=== PATIENT | male | born 1985 | race Caucasian/White ===

== ENCOUNTER 2018-06-21 23:38 | Emergency (ER) | payer SELFPAY ==
[~2018-06-21] VITALS: Ht 177.8 cm; Wt 82.3 kg
[2018-06-22 00:31] LABS: BASOPHILS # (AUTO) 0.02 x10^3/uL (0-0.1); BASOPHILS % (AUTO) 1 % (0-1); EOSINOPHILS # (AUTO) 0.26 x10^3/uL (0-0.4); EOSINOPHILS % (AUTO) 5 % (1-7); LYMPHOCYTES # (AUTO) 0.88 x10^3/uL (1-3.4); LYMPHOCYTES % (AUTO) 18 % (22-44); MD NO; MEAN CORPUSCULAR HEMOGLOBIN 29.4 pg (27.5-34.5); MEAN CORPUSCULAR HGB CONC 34.6 g/dL (33.2-36.2); MEAN PLATELET VOLUME 8.3 fL (7.4-10.4); MONOCYTES # (AUTO) 0.28 x10^3/uL (0.2-0.8); MONOCYTES % (AUTO) 6 % (2-9); NEUTROPHILS # (AUTO) 3.48 x10^3/uL (1.8-6.8); NEUTROPHILS % (AUTO) 71 % (42-75); PLATELET COUNT 233 x10^3/uL (130-400); RED BLOOD COUNT 5.03 x10^6/uL (4.38-5.82); RED CELL DISTRIBUTION WIDTH 13.5 % (9.4-14.8)
[2018-06-22 00:37] LABS: ANION GAP 11 mmol/L (5-15); CALCIUM 8.4 mg/dL (8.5-10.1); CHLORIDE 109 mmol/L (98-107)
[2018-06-22] MEDS ORDERED: ONDANSETRON 2MG/ML, 2ML ONE (00:38)
[2018-06-22 00:39] LABS: SALICYLATE LEVEL < 1.7 mg/dL (2.8-20.0)
[2018-06-22 00:40] LABS: ACETAMINOPHEN < 2 mcg/mL (10-30); ALANINE AMINOTRANSFERASE 91 U/L (12-78); ALKALINE PHOSPHATASE 90 U/L (45-117); BILIRUBIN,TOTAL 0.3 mg/dL (0.2-1.0); CREATININE 1.03 mg/dL (0.7-1.3); TOTAL PROTEIN 7.4 g/dL (6.4-8.2)
[2018-06-22] MEDS ORDERED: ONDANSETRON 2MG/ML, 2ML IVPush ONE (01:00)
[2018-06-22 01:50] VITALS: BP 117/71
[2018-06-22 02:38] LABS: AMPHETAMINE SCREEN, URINE Negative (Negative); BARBITURATE SCREEN, URINE Negative (Negative); BENZODIAZEPINE SCREEN, URINE Negative (Negative); CANNABINOID SCREEN, URINE Negative (Negative); COCAINE SCREEN, URINE Negative (Negative); METHADONE SCREEN, URINE Negative (Negative); OPIATE SCREEN, URINE Negative (Negative)
== END 2018-06-22 02:59 | disposition home or self-care (01) ==
LOC: ED 06-22 02:53
DX: T40.2X1A Poisoning by other opioids, accidental (unintentional), initial encounter (principal); F11.10 Opioid abuse, uncomplicated; X58.XXXA Exposure to other specified factors, initial encounter; Y93.89 Activity, other specified; Y92.89 Other specified places as the place of occurrence of the external cause; Y99.8 Other external cause status
CPT/HCPCS: 36415; 80053; 80307; 80329; 85025; 96374; 99284; J2405; G0480

== ENCOUNTER 2018-09-15 10:35 | Inpatient (IN) | payer MEDICAID, OTHER, SELFPAY ==
[~2018-09-15] VITALS: Ht 175.3 cm; Wt 79.0 kg
[2018-09-15] MEDS ORDERED: SERT25TA PO (10:58)
[2018-09-15] MEDS ORDERED: SODIUM CHLORIDE 0.9% 1,000 ML IV ONE ×2 (11:04→12:11)
[2018-09-15] MEDS ORDERED: ONDANSETRON ODT 4 MG ONE (11:10)
[2018-09-15] MEDS ORDERED: HYDROmorphone 2 MG/ML, 1ML ONE (11:10)
[2018-09-15] MEDS ORDERED: ONDANSETRON ODT 4 MG PO ONE (11:30)
[2018-09-15] MEDS ORDERED: SODIUM CHLORIDE FLUSH 10ML SYR IVF ONE (11:30)
[2018-09-15] MEDS ORDERED: HYDROmorphone 2 MG/ML, 1ML IVPush PRN (11:30)
[2018-09-15] MEDS ORDERED: SODIUM CHLORIDE 0.9% 1,000ML IVBOLUS ONE (11:30)
[2018-09-15 11:39] LABS: BASOPHILS # (AUTO) 0.02 x10^3/uL (0-0.1); BASOPHILS % (AUTO) 0 % (0-1); EOSINOPHILS # (AUTO) 0.15 x10^3/uL (0-0.4); EOSINOPHILS % (AUTO) 1 % (1-7); LYMPHOCYTES # (AUTO) 1.12 x10^3/uL (1-3.4); LYMPHOCYTES % (AUTO) 10 % (22-44); MD NO; MEAN CORPUSCULAR HEMOGLOBIN 28.9 pg (27.5-34.5); MEAN CORPUSCULAR HGB CONC 33.6 g/dL (33.2-36.2); MEAN PLATELET VOLUME 8.7 fL (7.4-10.4); MONOCYTES # (AUTO) 0.33 x10^3/uL (0.2-0.8); MONOCYTES % (AUTO) 3 % (2-9); NEUTROPHILS # (AUTO) 9.09 x10^3/uL (1.8-6.8); NEUTROPHILS % (AUTO) 85 % (42-75); PLATELET COUNT 239 x10^3/uL (130-400); RED BLOOD COUNT 5.45 x10^6/uL (4.38-5.82); RED CELL DISTRIBUTION WIDTH 13.8 % (9.4-14.8)
[2018-09-15 11:51] LABS: ALANINE AMINOTRANSFERASE 120 U/L (12-78); ALBUMIN 4.4 g/dL (3.4-5.0); ANION GAP 7 mmol/L (5-15); CALCIUM 9.2 mg/dL (8.5-10.1); CHLORIDE 106 mmol/L (98-107); CREATININE 0.92 mg/dL (0.7-1.3)
[2018-09-15 11:53] LABS: ALKALINE PHOSPHATASE 97 U/L (45-117); BILIRUBIN,TOTAL 0.8 mg/dL (0.2-1.0)
[2018-09-15] MEDS ORDERED: MORPHINE SULFATE 4 MG/ML, 1ML IVPush ONE (12:00)
[2018-09-15] MEDS ORDERED: MORPHINE SULFATE 4 MG/ML, 1ML ONE ×2 (12:02→13:55)
[2018-09-15] MEDS ORDERED: SODIUM CHLORIDE FLUSH 10ML SYR IVF PRN (12:30)
[2018-09-15 12:49] LABS: MICROSCOPIC INDICATED
[2018-09-15] MEDS ORDERED: BACLOFEN 10 MG TABLET PO PRN (13:00)
[2018-09-15] MEDS ORDERED: ONDANSETRON 2MG/ML, 2ML IVPush PRN (13:00)
[2018-09-15] MEDS ORDERED: hydrALAzine 20 MG/ML, 1ML IVPush PRN (13:00)
[2018-09-15 13:05] LABS: CULTURE INDICATED? NO
[2018-09-15] MEDS: MORPHINE SULFATE 4 MG/ML, 1ML IVPush PRN ×2 (13:59→17:54)
[2018-09-15 14:29] VITALS: BP 144/92
[2018-09-15] MEDS: KETOROLAC 30 MG/1 ML IV PRN ×2 (14:55→20:33)
[2018-09-15] MEDS ORDERED: ATOR10TA9 PO (15:25)
[2018-09-15] MEDS ORDERED: NALT50TA PO (15:28)
[2018-09-15] MEDS: POTASSIUM CHLORIDE 20 MEQ, MAGNESIUM SULFATE 1 GM, FOLIC ACID 1 MG, THIAMINE 200 MG, MV... IV SCH (15:51)
[2018-09-15] MEDS: SODIUM CHLORIDE 0.9% 1,000 ML IV SCH ×2 (15:51→23:59)
[2018-09-15] MEDS: HYDROmorphone 2 MG/ML, 1ML IVPush PRN ×3 (17:02→22:39)
[2018-09-15 19:25] VITALS: BP 142/94
[2018-09-15] MEDS: PANTOPRAZOLE 40 MG IV IVPush SCH (20:34)
[2018-09-15] MEDS: NICOTINE 14MG/24 HR PATCH.TD24 TD SCH (20:36)
[2018-09-16 01:27] VITALS: BP 132/90
[2018-09-16] MEDS: KETOROLAC 30 MG/1 ML IV PRN ×4 (02:06→21:38)
[2018-09-16] MEDS: HYDROmorphone 2 MG/ML, 1ML IVPush PRN ×6 (03:27→19:48)
[2018-09-16 04:54] LABS: BASOPHILS # (AUTO) 0.01 x10^3/uL (0-0.1); BASOPHILS % (AUTO) 0 % (0-1); EOSINOPHILS # (AUTO) 0.27 x10^3/uL (0-0.4); EOSINOPHILS % (AUTO) 3 % (1-7); LYMPHOCYTES # (AUTO) 1.22 x10^3/uL (1-3.4); LYMPHOCYTES % (AUTO) 11 % (22-44); MD NO; MEAN CORPUSCULAR HEMOGLOBIN 29.1 pg (27.5-34.5); MEAN CORPUSCULAR HGB CONC 34.1 g/dL (33.2-36.2); MEAN CORPUSCULAR VOLUME 85.5 fL (81-97); MEAN PLATELET VOLUME 8.9 fL (7.4-10.4); MONOCYTES # (AUTO) 0.44 x10^3/uL (0.2-0.8); MONOCYTES % (AUTO) 4 % (2-9); NEUTROPHILS # (AUTO) 9.16 x10^3/uL (1.8-6.8); NEUTROPHILS % (AUTO) 83 % (42-75); PLATELET COUNT 187 x10^3/uL (130-400); RED BLOOD COUNT 5.09 x10^6/uL (4.38-5.82); RED CELL DISTRIBUTION WIDTH 13.6 % (9.4-14.8)
[2018-09-16 05:07] LABS: ALBUMIN 3.5 g/dL (3.4-5.0); ANION GAP 6 mmol/L (5-15); CALCIUM 8.5 mg/dL (8.5-10.1); CHLORIDE 107 mmol/L (98-107)
[2018-09-16 05:14] LABS: ALANINE AMINOTRANSFERASE 76 U/L (12-78); ALKALINE PHOSPHATASE 81 U/L (45-117); BILIRUBIN,TOTAL 1.7 mg/dL (0.2-1.0); CHOL/HDL RATIO 1.9; CHOLESTEROL, TOTAL 136 mg/dL (140-239); CREATININE 0.72 mg/dL (0.7-1.3); HDL CHOL % 52 % (26-37); HDL CHOLESTEROL (DIRECT) 71 mg/dL (40-60); LDL CHOLESTEROL,CALCULATED 45 mg/dL (54-169); LDL/HDL RATIO 0.6 (0.5-3.0); TOTAL PROTEIN 6.6 g/dL (6.4-8.2); TRIGLYCERIDES 99 mg/dL (50-200); VLDL CHOLESTEROL 20 mg/dL (0-25)
[2018-09-16] MEDS: SODIUM CHLORIDE 0.9% 1,000 ML IV SCH ×2 (06:22→14:32)
[2018-09-16 07:10] VITALS: BP 136/92
[2018-09-16] MEDS: PANTOPRAZOLE 40 MG IV IVPush SCH ×2 (08:05→20:49)
[2018-09-16 13:03] VITALS: BP 152/109
[2018-09-16] MEDS: POTASSIUM CHLORIDE 20 MEQ, MAGNESIUM SULFATE 1 GM, FOLIC ACID 1 MG, THIAMINE 200 MG, MV... IV SCH (14:32)
[2018-09-16 19:25] VITALS: BP 134/78
[2018-09-16] MEDS: NICOTINE 14MG/24 HR PATCH.TD24 TD SCH (20:49)
[2018-09-17 01:53] VITALS: BP 127/90
[2018-09-17] MEDS: KETOROLAC 30 MG/1 ML IV PRN ×3 (03:23→15:55)
[2018-09-17] MEDS: SODIUM CHLORIDE 0.9% 1,000 ML IV SCH ×2 (03:24→10:18)
[2018-09-17 05:17] LABS: ALANINE AMINOTRANSFERASE 55 U/L (12-78); ALBUMIN 3.3 g/dL (3.4-5.0); ANION GAP 8 mmol/L (5-15); CALCIUM 8.4 mg/dL (8.5-10.1); CHLORIDE 107 mmol/L (98-107); CREATININE 0.72 mg/dL (0.7-1.3)
[2018-09-17 05:22] LABS: ALKALINE PHOSPHATASE 79 U/L (45-117); BILIRUBIN,TOTAL 1.4 mg/dL (0.2-1.0); TOTAL PROTEIN 6.9 g/dL (6.4-8.2)
[2018-09-17 06:41] VITALS: BP 127/90
[2018-09-17] MEDS: HYDROmorphone 2 MG/ML, 1ML IVPush PRN ×2 (07:28→13:14)
[2018-09-17] MEDS: PANTOPRAZOLE 40 MG IV IVPush SCH (07:28)
[2018-09-17] MEDS ORDERED: THIAMINE 100MG TABLET PO ONE (09:00)
[2018-09-17] MEDS ORDERED: FOLIC ACID 1 MG TABLET PO SCH (09:00)
[2018-09-17] MEDS ORDERED: PANTOPROZOLE 40MG TABLET PO SCH (09:00)
[2018-09-17] MEDS ORDERED: MAGNESIUM OXIDE 400 MG TABLET PO SCH (09:00)
[2018-09-17 12:26] VITALS: BP 126/83
[2018-09-17] MEDS ORDERED: MAGN400T50 PO (12:40)
[2018-09-17] MEDS ORDERED: NICO-486 TD (12:40)
[2018-09-17] MEDS ORDERED: FOLI-17 PO (12:40)
[2018-09-17] MEDS ORDERED: PANT40TA5 PO (12:40)
== END 2018-09-17 16:09 | disposition home or self-care (01) | DRG 432 ==
LOC: ED 12:10 → EDIP 12:11 → MERGE 12:11 → ED 12:16 → SUATTDRO 12:26 → 3NW 14:11
PROVIDERS: ADMIT Hospitalist; ATTEND Hospitalist
DX: K70.10 Alcoholic hepatitis without ascites (principal); K85.20 Alcohol induced acute pancreatitis without necrosis or infection; F11.20 Opioid dependence, uncomplicated; K76.0 Fatty (change of) liver, not elsewhere classified; F10.20 Alcohol dependence, uncomplicated; F41.1 Generalized anxiety disorder; F32.9 Major depressive disorder, single episode, unspecified; Y90.1 Blood alcohol level of 20-39 mg/100 ml; Z87.891 Personal history of nicotine dependence; Z23 Encounter for immunization
CPT/HCPCS: 36415; 99285; J7042; 76700; 80053; 80061; 80307; 81001; 82140; 83690; 83735; 84100; 85025; 86704; 86706; 86708; 86803; 87340; 90656; 96361; 96374; 96375; G0378; J1170; J1885; J3411; J3475; J3480; Q0162; C9113; J7030

== ENCOUNTER 2019-02-23 10:47 | Emergency (ER) | payer OTHER ==
[~2019-02-23] VITALS: Ht 177.8 cm; Wt 83.9 kg
[~2019-02-23 10:47] MED LIST: ATOR10TA9 PO; FOLI-17 PO; MAGN400T50 PO; NALT50TA PO; NICO-486 TD; PANT40TA5 PO; SERT25TA PO
[2019-02-23] MEDS ORDERED: DIAZEPAM 5 MG TABLET PO ONE (11:30)
[2019-02-23] MEDS ORDERED: KETOROLAC 30 MG/1 ML IM ONE (11:30)
[2019-02-23] MEDS ORDERED: DIAZEPAM 5 MG TABLET ONE (11:31)
[2019-02-23] MEDS ORDERED: KETOROLAC 30 MG/1 ML ONE (11:31)
[2019-02-23] MEDS ORDERED: HYDROcodone/APAP 5/325 TABLET ONE (12:26)
[2019-02-23] MEDS ORDERED: HYDROcodone/APAP 5/325 TABLET PO ONE (12:30)
[2019-02-23 12:34] VITALS: BP 124/80
== END 2019-02-23 12:44 | disposition home or self-care (01) ==
LOC: ED 12:22
DX: S39.012A Strain of muscle, fascia and tendon of lower back, initial encounter (principal); S29.012A Strain of muscle and tendon of back wall of thorax, initial encounter; X58.XXXA Exposure to other specified factors, initial encounter; Y93.89 Activity, other specified; Y92.89 Other specified places as the place of occurrence of the external cause; Y99.8 Other external cause status
CPT/HCPCS: 72072; 72110; 96372; 99283; J1885

== ENCOUNTER → 2019-03-25 | Outpatient (CLI) | payer OTHER | END | disposition home or self-care (01) | LOC: RAD 08:34 → EDSTATUS 09:00 | PROVIDERS: ATTEND Neurological Surgery | DX: M48.02 Spinal stenosis, cervical region (principal); M47.812 Spondylosis without myelopathy or radiculopathy, cervical region | CPT/HCPCS: 72050; 72114; 72141 ==

== ENCOUNTER → 2019-04-18 | Outpatient (CLI) | payer OTHER ==
[2019-04-18 07:52] LABS: BASOPHILS # (AUTO) 0.04 x10^3/uL (0-0.1); BASOPHILS % (AUTO) 1 % (0-1); EOSINOPHILS # (AUTO) 0.44 x10^3/uL (0-0.4); EOSINOPHILS % (AUTO) 7 % (1-7); LYMPHOCYTES # (AUTO) 1.82 x10^3/uL (1-3.4); LYMPHOCYTES % (AUTO) 27 % (22-44); MD NO; MEAN CORPUSCULAR HEMOGLOBIN 28.4 pg (27.5-34.5); MEAN CORPUSCULAR HGB CONC 32.4 g/dL (33.2-36.2); MEAN CORPUSCULAR VOLUME 87.5 fL (81-97); MEAN PLATELET VOLUME 7.8 fL (7.4-10.4); MONOCYTES # (AUTO) 0.48 x10^3/uL (0.2-0.8); MONOCYTES % (AUTO) 7 % (2-9); NEUTROPHILS # (AUTO) 3.92 x10^3/uL (1.8-6.8); NEUTROPHILS % (AUTO) 59 % (42-75); PLATELET COUNT 226 x10^3/uL (130-400); RED BLOOD COUNT 5.47 x10^6/uL (4.38-5.82); RED CELL DISTRIBUTION WIDTH 13.4 % (9.4-14.8)
[2019-04-18 08:10] LABS: ALANINE AMINOTRANSFERASE 185 U/L (12-78); ALBUMIN 4.2 g/dL (3.4-5.0); ANION GAP 6 mmol/L (5-15); CHLORIDE 104 mmol/L (98-107); CREATININE 1.03 mg/dL (0.7-1.3); GAMMA GLUTAMYL TRANSPEPTIDASE 449 U/L (15-85)
[2019-04-18 08:14] LABS: ALKALINE PHOSPHATASE 94 U/L (45-117); BILIRUBIN,TOTAL 0.7 mg/dL (0.2-1.0); CHOL/HDL RATIO 4.2; CHOLESTEROL, TOTAL 297 mg/dL (140-239); HDL CHOL % 24 % (26-37); HDL CHOLESTEROL (DIRECT) 71 mg/dL (40-60); LDL CHOLESTEROL,CALCULATED 187 mg/dL (54-169); LDL/HDL RATIO 2.6 (0.5-3.0); TOTAL PROTEIN 7.8 g/dL (6.4-8.2); TRIGLYCERIDES 196 mg/dL (50-200); VLDL CHOLESTEROL 39 mg/dL (0-25)
== END | disposition home or self-care (01) ==
LOC: LAB 07:41
PROVIDERS: ATTEND Family Medicine
DX: E78.5 Hyperlipidemia, unspecified (principal); R73.9 Hyperglycemia, unspecified; R94.5 Abnormal results of liver function studies
CPT/HCPCS: 36415; 80053; 80061; 82977; 83036; 85025

== ENCOUNTER 2019-04-26 04:27 | Inpatient (IN) | payer OTHER ==
[~2019-04-26] VITALS: Ht 177.8 cm; Wt 86.4 kg
[2019-04-26] MEDS ORDERED: MAALOX/HYOSCYAMINE/LIDOCAINE 45 ML BTL ONE (05:08)
--- NOTE | 2019-04-26 05:11 | NUR ---
PT HERE FOR CHEST/EPIGASTRIC PAIN THAT STARTED BACK PAIN YESTERDAY. VSS. PT MEDICATED WITH GI COCKTAIL. WILL REASSESS PT PAIN IN 20 MIN. PT RESTING WITH NO NEEDS AT THIS TIME. CALL LIGHT IN REACH
[2019-04-26] MEDS ORDERED: MAALOX/HYOSCYAMINE/LIDOCAINE 45 ML BTL PO ONE (05:30)
[2019-04-26] MEDS ORDERED: SODIUM CHLORIDE FLUSH 10ML SYR IVF ONE (05:30)
[2019-04-26 05:50] LABS: BASOPHILS # (AUTO) 0.02 x10^3/uL (0-0.1); BASOPHILS % (AUTO) 0 % (0-1); EOSINOPHILS # (AUTO) 0.27 x10^3/uL (0-0.4); EOSINOPHILS % (AUTO) 3 % (1-7); LYMPHOCYTES # (AUTO) 1.56 x10^3/uL (1-3.4); LYMPHOCYTES % (AUTO) 17 % (22-44); MD NO; MEAN CORPUSCULAR HEMOGLOBIN 29.5 pg (27.5-34.5); MEAN CORPUSCULAR HGB CONC 33.6 g/dL (33.2-36.2); MEAN CORPUSCULAR VOLUME 87.7 fL (81-97); MEAN PLATELET VOLUME 8.3 fL (7.4-10.4); MONOCYTES % (AUTO) 4 % (2-9); NEUTROPHILS # (AUTO) 7.09 x10^3/uL (1.8-6.8); NEUTROPHILS % (AUTO) 76 % (42-75); PLATELET COUNT 241 x10^3/uL (130-400); RED BLOOD COUNT 5.32 x10^6/uL (4.38-5.82); RED CELL DISTRIBUTION WIDTH 13.5 % (9.4-14.8)
[2019-04-26 05:53] LABS: CHLORIDE 107 mmol/L (98-107)
[2019-04-26 06:02] LABS: ALANINE AMINOTRANSFERASE 122 U/L (12-78); ALBUMIN 4.2 g/dL (3.4-5.0); ALKALINE PHOSPHATASE 81 U/L (45-117); ANION GAP 9 mmol/L (5-15); BILIRUBIN,TOTAL 1.5 mg/dL (0.2-1.0); CALCIUM 9.3 mg/dL (8.5-10.1); CREATININE 1.03 mg/dL (0.7-1.3); TOTAL PROTEIN 7.8 g/dL (6.4-8.2); TROPONIN I < 0.015 ng/mL (0.000-0.045)
--- NOTE | 2019-04-26 06:05 | NUR ---
PT RESTING. VSS. MEDICATION HELPED SLIGHTLY. MD TO RE EVALUATE.
[2019-04-26] MEDS ORDERED: HYDR-3240 PO (06:19)
[2019-04-26] MEDS ORDERED: ONDANSETRON 2MG/ML, 2ML ONE (06:24)
[2019-04-26] MEDS ORDERED: HYDROmorphone 2 MG/ML, 1ML ONE ×2 (06:25→10:22)
[2019-04-26] MEDS ORDERED: ONDANSETRON 2MG/ML, 2ML IVPush ONE (06:30)
[2019-04-26] MEDS: HYDROmorphone 2 MG/ML, 1ML IVPush PRN ×6 (06:36→21:36)
--- NOTE | 2019-04-26 06:42 | NUR ---
PT BACK FROM CT. PT MEDICATED FOR PAIN. PT HAS NO OTHER NEEDS AT THIS TIME. CALL LIGHT IN REACH
[2019-04-26] MEDS ORDERED: OMNIPAQUE 350 MG/ML, 100ML BOTTLE ONE (06:54)
--- NOTE | 2019-04-26 06:57 | NUR ---
REPORT TO CALVIN LEWIS.
--- NOTE | 2019-04-26 07:26 | NUR ---
PT REPORTS THAT HIS PAIN HAS DECREASED AND HE IS COMFORTABLE NOW. PT STATES, "I DON'T REALLY DRINK THAT MUCH ANYMORE, JUST A FEW DRINKS AFTER WORK". PT REPORTS THAT HE HAS CHRONIC PAIN IN HIS LOWER BACK, BUT "NO OTHER MEDICAL PROBLEMS". VSS. NO ACUTE DISTRESS NOTED.
[2019-04-26] MEDS ORDERED: ONDANSETRON ODT 4 MG PO PRN (07:30)
[2019-04-26] MEDS: LACTATED RINGERS 1,000 ML IV SCH ×2 (07:30→18:12)
[2019-04-26] MEDS ORDERED: KETOROLAC 30 MG/1 ML IVPush ONE (07:30)
[2019-04-26] MEDS ORDERED: PROMETHAZINE 25 MG/ML, 1ML IM PRN (07:30)
[2019-04-26] MEDS ORDERED: ONDANSETRON 2MG/ML, 2ML IVPush PRN (07:30)
[2019-04-26] MEDS ORDERED: MORPHINE SULFATE 4 MG/ML, 1ML IVPush PRN (07:30)
[2019-04-26 07:47] LABS: CHOL/HDL RATIO 3.6; LDL/HDL RATIO 2.1 (0.5-3.0)
[2019-04-26] MEDS ORDERED: KETOROLAC 30 MG/1 ML ONE (08:00)
--- NOTE | 2019-04-26 08:06 | NUR ---
PT DENIES ANY NEEDS AT THIS TIME. PT IS AWARE THAT HE IS TO NOT HAVE ORAL INTAKE. VSS.
--- NOTE | 2019-04-26 09:05 | NUR ---
PT DENIES ANY NEEDS AT THIS TIME. VSS. NO ACUTE SIGNS OF DISTRESS.
--- NOTE | 2019-04-26 09:37 | NUR ---
REPORT GIVEN TO FAINA ON ONC.
--- NOTE | 2019-04-26 09:41 | NUR ---
PT READY TO BE TRANSFERRED TO FLOOR. ALL BELONGINGS WITH PT. FAMILY AT BEDSIDE. VSS.
--- NOTE | 2019-04-26 10:29 | NUR ---
PT MEDICATED FOR PAIN. DENIES ADDITIONAL NEEDS AT THIS TIME. VSS.
[2019-04-26 10:49] VITALS: BP 143/85
[2019-04-26] MEDS: POTASSIUM CHLORIDE 20 MEQ, MAGNESIUM SULFATE 1 GM, FOLIC ACID 1 MG, THIAMINE 200 MG, MV... IV SCH (11:05)
[2019-04-26] MEDS: NICOTINE 14MG/24 HR PATCH.TD24 TD SCH (11:05)
[2019-04-26] MEDS: PANTOPRAZOLE 40 MG IV IVPush SCH (11:05)
[2019-04-26 12:13] VITALS: BP 143/92
[2019-04-26 19:21] VITALS: BP 145/97
[2019-04-26] MEDS: LORazepam 2 MG/ML, 1ML IVPush PRN (21:00)
[2019-04-27] MEDS: LACTATED RINGERS 1,000 ML IV SCH ×3 (00:04→17:24)
[2019-04-27] MEDS: HYDROmorphone 2 MG/ML, 1ML IVPush PRN ×10 (00:06→23:43)
[2019-04-27 00:56] VITALS: BP 150/90
[2019-04-27 04:53] LABS: MEAN CORPUSCULAR HEMOGLOBIN 29.4 pg (27.5-34.5); MEAN CORPUSCULAR HGB CONC 33.1 g/dL (33.2-36.2); MEAN CORPUSCULAR VOLUME 88.9 fL (81-97); MEAN PLATELET VOLUME 8.3 fL (7.4-10.4); PLATELET COUNT 228 x10^3/uL (130-400); RED CELL DISTRIBUTION WIDTH 13.8 % (9.4-14.8)
[2019-04-27 04:59] LABS: ALBUMIN 3.7 g/dL (3.4-5.0); ANION GAP 11 mmol/L (5-15); CALCIUM 8.8 mg/dL (8.5-10.1); CHLORIDE 106 mmol/L (98-107)
[2019-04-27 05:10] LABS: ALANINE AMINOTRANSFERASE 85 U/L (12-78); ALKALINE PHOSPHATASE 81 U/L (45-117); BILIRUBIN,TOTAL 1.7 mg/dL (0.2-1.0); CREATININE 0.98 mg/dL (0.7-1.3); TOTAL PROTEIN 7.1 g/dL (6.4-8.2)
[2019-04-27 05:33] LABS: MD YES
[2019-04-27 05:35] LABS: <PLATELET ESTIMATE> ADEQUATE; <PLT MORPHOLOGY> NORMAL PLT MORPH; <RBC MORPHOLOGY> NORMAL; BAND#(MANUAL) 1.28 x10^3/uL; BANDS%(MANUAL) 7 % (0-7); LYMPH#(MANUAL) 0.55 x10^3/uL (1-3.4); LYMPHS% (MANUAL) 3 % (22-44); MONOS#(MANUAL) 0.55 x10^3/uL (0.3-2.7); MONOS% (MANUAL) 3 % (2-9); SEG#(MANUAL) 15.92 x10^3/uL (1.8-6.8); SEGS% (MANUAL) 87 % (42-75)
[2019-04-27] MEDS: PANTOPRAZOLE 40 MG IV IVPush SCH (07:29)
[2019-04-27] MEDS: NICOTINE 14MG/24 HR PATCH.TD24 TD SCH (07:29)
[2019-04-27 07:32] VITALS: BP 144/89
[2019-04-27] MEDS: POTASSIUM CHLORIDE 20 MEQ, MAGNESIUM SULFATE 1 GM, FOLIC ACID 1 MG, THIAMINE 200 MG, MV... IV SCH (08:47)
[2019-04-27] MEDS ORDERED: MAALOX/HYOSCYAMINE/LIDOCAINE 45 ML BTL PO ONE (10:30)
[2019-04-27 12:22] LABS: MICROSCOPIC AUTO
[2019-04-27 12:25] LABS: CULTURE INDICATED? NO
[2019-04-27 13:19] VITALS: BP 145/94
[2019-04-27] MEDS ORDERED: cloniDINE 0.1MG PATCH TD SCH (19:00)
[2019-04-27] MEDS: GABAPENTIN 100 MG CAPSULE PO SCH ×2 (19:00→20:24)
[2019-04-27 19:43] VITALS: BP 133/80
[2019-04-27] MEDS: D5%-LACTATED RINGERS 1,000 ML IV SCH (20:15)
[2019-04-27] MEDS: LORazepam 2 MG/ML, 1ML IVPush PRN (22:25)
[2019-04-28] MEDS: D5%-LACTATED RINGERS 1,000 ML IV SCH ×4 (01:12→20:32)
[2019-04-28 01:55] VITALS: BP 144/82
[2019-04-28] MEDS: HYDROmorphone 2 MG/ML, 1ML IVPush PRN ×8 (02:33→23:03)
[2019-04-28 06:23] LABS: MEAN CORPUSCULAR HEMOGLOBIN 29.3 pg (27.5-34.5); MEAN CORPUSCULAR HGB CONC 33.2 g/dL (33.2-36.2); MEAN CORPUSCULAR VOLUME 88.5 fL (81-97); MEAN PLATELET VOLUME 8.6 fL (7.4-10.4); PLATELET COUNT 167 x10^3/uL (130-400); RED BLOOD COUNT 4.55 x10^6/uL (4.38-5.82); RED CELL DISTRIBUTION WIDTH 13.8 % (9.4-14.8)
[2019-04-28 06:37] LABS: CHLORIDE 108 mmol/L (98-107)
[2019-04-28 06:43] LABS: BASOPHILS # (AUTO) 0.02 x10^3/uL (0-0.1); BASOPHILS % (AUTO) 0 % (0-1); EOSINOPHILS # (AUTO) 0.42 x10^3/uL (0-0.4); EOSINOPHILS % (AUTO) 4 % (1-7); LYMPHOCYTES # (AUTO) 0.92 x10^3/uL (1-3.4); LYMPHOCYTES % (AUTO) 10 % (22-44); MD SCAN; MONOCYTES # (AUTO) 0.38 x10^3/uL (0.2-0.8); MONOCYTES % (AUTO) 4 % (2-9); NEUTROPHILS # (AUTO) 7.74 x10^3/uL (1.8-6.8); NEUTROPHILS % (AUTO) 82 % (42-75)
[2019-04-28 06:49] LABS: ALANINE AMINOTRANSFERASE 49 U/L (12-78); ALBUMIN 2.8 g/dL (3.4-5.0); ALKALINE PHOSPHATASE 73 U/L (45-117); ANION GAP 7 mmol/L (5-15); BILIRUBIN,TOTAL 1.5 mg/dL (0.2-1.0); CALCIUM 8.2 mg/dL (8.5-10.1); CREATININE 0.91 mg/dL (0.7-1.3); TOTAL PROTEIN 6.5 g/dL (6.4-8.2)
[2019-04-28 07:20] VITALS: BP 136/79
[2019-04-28] MEDS: PANTOPRAZOLE 40 MG IV IVPush SCH (08:33)
[2019-04-28] MEDS: NICOTINE 14MG/24 HR PATCH.TD24 TD SCH (08:33)
[2019-04-28] MEDS: GABAPENTIN 100 MG CAPSULE PO SCH ×3 (10:16→20:12)
[2019-04-28] MEDS: POTASSIUM CHLORIDE 20 MEQ, MAGNESIUM SULFATE 1 GM, FOLIC ACID 1 MG, THIAMINE 200 MG, MV... IV SCH (11:24)
[2019-04-28 14:33] VITALS: BP 136/81
[2019-04-28 18:34] VITALS: BP 129/81
[2019-04-29] MEDS: D5%-LACTATED RINGERS 1,000 ML IV SCH ×5 (00:59→21:56)
[2019-04-29] MEDS: HYDROmorphone 2 MG/ML, 1ML IVPush PRN ×7 (02:09→19:55)
[2019-04-29 04:00] VITALS: BP 121/75
[2019-04-29 05:01] LABS: BASOPHILS # (AUTO) 0.01 x10^3/uL (0-0.1); BASOPHILS % (AUTO) 0 % (0-1); EOSINOPHILS # (AUTO) 0.55 x10^3/uL (0-0.4); EOSINOPHILS % (AUTO) 6 % (1-7); LYMPHOCYTES % (AUTO) 12 % (22-44); MD NO; MEAN CORPUSCULAR HEMOGLOBIN 29.3 pg (27.5-34.5); MEAN CORPUSCULAR HGB CONC 33.2 g/dL (33.2-36.2); MEAN CORPUSCULAR VOLUME 88.3 fL (81-97); MEAN PLATELET VOLUME 8.8 fL (7.4-10.4); MONOCYTES # (AUTO) 0.46 x10^3/uL (0.2-0.8); MONOCYTES % (AUTO) 5 % (2-9); NEUTROPHILS # (AUTO) 6.91 x10^3/uL (1.8-6.8); NEUTROPHILS % (AUTO) 77 % (42-75); PLATELET COUNT 157 x10^3/uL (130-400); RED BLOOD COUNT 4.31 x10^6/uL (4.38-5.82); RED CELL DISTRIBUTION WIDTH 13.8 % (9.4-14.8)
[2019-04-29 05:07] LABS: ALANINE AMINOTRANSFERASE 38 U/L (12-78); ALBUMIN 2.7 g/dL (3.4-5.0); ANION GAP 6 mmol/L (5-15); CALCIUM 8.4 mg/dL (8.5-10.1); CHLORIDE 105 mmol/L (98-107); CREATININE 0.93 mg/dL (0.7-1.3)
[2019-04-29 05:09] LABS: ALKALINE PHOSPHATASE 84 U/L (45-117); BILIRUBIN,TOTAL 1.5 mg/dL (0.2-1.0); TOTAL PROTEIN 6.8 g/dL (6.4-8.2)
[2019-04-29 07:14] VITALS: BP 116/81
[2019-04-29] MEDS: PANTOPRAZOLE 40 MG IV IVPush SCH (08:17)
[2019-04-29] MEDS: NICOTINE 14MG/24 HR PATCH.TD24 TD SCH (08:18)
[2019-04-29] MEDS: GABAPENTIN 100 MG CAPSULE PO SCH ×3 (08:18→19:56)
[2019-04-29] MEDS ORDERED: OMNIPAQUE 350 MG/ML, 100ML BOTTLE ONE (08:18)
[2019-04-29] MEDS: THIAMINE 100MG TABLET PO SCH (13:47)
[2019-04-29] MEDS: FOLIC ACID 1 MG TABLET PO SCH (13:47)
[2019-04-29 14:30] VITALS: BP 130/79
[2019-04-29 18:47] VITALS: BP 127/81
[2019-04-29] MEDS: LORazepam 2 MG/ML, 1ML IVPush PRN (22:26)
[2019-04-30 00:30] VITALS: BP 118/75
[2019-04-30] MEDS: HYDROmorphone 2 MG/ML, 1ML IVPush PRN ×6 (01:59→19:53)
[2019-04-30] MEDS: D5%-LACTATED RINGERS 1,000 ML IV SCH ×5 (03:12→22:32)
[2019-04-30 04:41] LABS: BASOPHILS # (AUTO) 0.04 x10^3/uL (0-0.1); BASOPHILS % (AUTO) 1 % (0-1); EOSINOPHILS # (AUTO) 0.48 x10^3/uL (0-0.4); EOSINOPHILS % (AUTO) 7 % (1-7); LYMPHOCYTES # (AUTO) 0.68 x10^3/uL (1-3.4); LYMPHOCYTES % (AUTO) 9 % (22-44); MD NO; MEAN CORPUSCULAR HEMOGLOBIN 29.5 pg (27.5-34.5); MEAN CORPUSCULAR HGB CONC 33.3 g/dL (33.2-36.2); MEAN CORPUSCULAR VOLUME 88.7 fL (81-97); MEAN PLATELET VOLUME 8.5 fL (7.4-10.4); MONOCYTES % (AUTO) 10 % (2-9); NEUTROPHILS % (AUTO) 74 % (42-75); PLATELET COUNT 196 x10^3/uL (130-400); RED CELL DISTRIBUTION WIDTH 13.1 % (9.4-14.8)
[2019-04-30 04:51] LABS: ALBUMIN 2.7 g/dL (3.4-5.0); ANION GAP 6 mmol/L (5-15); CALCIUM 8.8 mg/dL (8.5-10.1); CHLORIDE 105 mmol/L (98-107)
[2019-04-30 04:55] LABS: ALANINE AMINOTRANSFERASE 59 U/L (12-78); ALKALINE PHOSPHATASE 113 U/L (45-117); BILIRUBIN,TOTAL 1.9 mg/dL (0.2-1.0); CREATININE 0.96 mg/dL (0.7-1.3); TOTAL PROTEIN 7.1 g/dL (6.4-8.2)
[2019-04-30 07:33] VITALS: BP 117/76
[2019-04-30] MEDS: PANTOPRAZOLE 40 MG IV IVPush SCH (09:06)
[2019-04-30] MEDS: GABAPENTIN 100 MG CAPSULE PO SCH ×3 (09:06→19:53)
[2019-04-30] MEDS: NICOTINE 14MG/24 HR PATCH.TD24 TD SCH (09:07)
[2019-04-30] MEDS: THIAMINE 100MG TABLET PO SCH (09:07)
[2019-04-30] MEDS: FOLIC ACID 1 MG TABLET PO SCH (09:07)
[2019-04-30] MEDS ORDERED: MELATONIN 3 MG TABLET PO PRN (11:30)
[2019-04-30 12:49] VITALS: BP 126/80
[2019-04-30] MEDS: KETOROLAC 30 MG/1 ML IVPush PRN ×2 (14:11→21:51)
[2019-04-30 19:51] VITALS: BP 137/90
[2019-05-01] MEDS: HYDROmorphone 2 MG/ML, 1ML IVPush PRN ×2 (00:24→04:23)
[2019-05-01 03:25] VITALS: BP 125/82
[2019-05-01] MEDS: D5%-LACTATED RINGERS 1,000 ML IV SCH ×4 (03:41→21:32)
[2019-05-01 05:26] LABS: BASOPHILS # (AUTO) 0.01 x10^3/uL (0-0.1); BASOPHILS % (AUTO) 0 % (0-1); EOSINOPHILS # (AUTO) 0.51 x10^3/uL (0-0.4); EOSINOPHILS % (AUTO) 9 % (1-7); LYMPHOCYTES # (AUTO) 0.73 x10^3/uL (1-3.4); LYMPHOCYTES % (AUTO) 13 % (22-44); MD NO; MEAN CORPUSCULAR HEMOGLOBIN 29.5 pg (27.5-34.5); MEAN CORPUSCULAR HGB CONC 33.4 g/dL (33.2-36.2); MEAN CORPUSCULAR VOLUME 88.2 fL (81-97); MONOCYTES % (AUTO) 10 % (2-9); NEUTROPHILS # (AUTO) 3.98 x10^3/uL (1.8-6.8); NEUTROPHILS % (AUTO) 68 % (42-75); PLATELET COUNT 238 x10^3/uL (130-400); RED BLOOD COUNT 3.82 x10^6/uL (4.38-5.82); RED CELL DISTRIBUTION WIDTH 13.5 % (9.4-14.8)
[2019-05-01 05:32] LABS: CHLORIDE 108 mmol/L (98-107)
[2019-05-01 05:41] LABS: ALANINE AMINOTRANSFERASE 142 U/L (12-78); ALBUMIN 2.5 g/dL (3.4-5.0); ALKALINE PHOSPHATASE 154 U/L (45-117); ANION GAP 6 mmol/L (5-15); CALCIUM 8.7 mg/dL (8.5-10.1); CREATININE 0.79 mg/dL (0.7-1.3); TOTAL PROTEIN 6.5 g/dL (6.4-8.2)
[2019-05-01 06:41] VITALS: BP 123/79
[2019-05-01] MEDS: NICOTINE 14MG/24 HR PATCH.TD24 TD SCH (07:30)
[2019-05-01] MEDS: THIAMINE 100MG TABLET PO SCH (09:10)
[2019-05-01] MEDS: GABAPENTIN 100 MG CAPSULE PO SCH ×3 (09:10→21:33)
[2019-05-01] MEDS: FOLIC ACID 1 MG TABLET PO SCH (09:11)
[2019-05-01] MEDS: OXYcodone/APAP 5/325MG TABLET PO PRN ×4 (09:11→23:30)
[2019-05-01] MEDS: PANTOPRAZOLE 40 MG IV IVPush SCH (09:12)
[2019-05-01 12:45] VITALS: BP 125/73
[2019-05-01 19:28] VITALS: BP 145/89
[2019-05-02 01:12] VITALS: BP 123/80
[2019-05-02] MEDS: D5%-LACTATED RINGERS 1,000 ML IV SCH ×2 (05:10→10:00)
[2019-05-02] MEDS ORDERED: PANTOPROZOLE 40MG TABLET PO SCH (06:00)
[2019-05-02] MEDS: NICOTINE 14MG/24 HR PATCH.TD24 TD SCH (07:30)
[2019-05-02] MEDS: GABAPENTIN 100 MG CAPSULE PO SCH (07:55)
[2019-05-02 07:56] VITALS: BP 132/88
[2019-05-02] MEDS: OXYcodone/APAP 5/325MG TABLET PO PRN (07:56)
[2019-05-02] MEDS: THIAMINE 100MG TABLET PO SCH (07:56)
[2019-05-02] MEDS: FOLIC ACID 1 MG TABLET PO SCH (07:56)
[2019-05-02 08:08] LABS: BASOPHILS # (AUTO) 0.05 x10^3/uL (0-0.1); BASOPHILS % (AUTO) 1 % (0-1); EOSINOPHILS # (AUTO) 0.52 x10^3/uL (0-0.4); EOSINOPHILS % (AUTO) 7 % (1-7); LYMPHOCYTES # (AUTO) 0.75 x10^3/uL (1-3.4); LYMPHOCYTES % (AUTO) 10 % (22-44); MD NO; MEAN CORPUSCULAR HEMOGLOBIN 28.6 pg (27.5-34.5); MEAN CORPUSCULAR HGB CONC 32.5 g/dL (33.2-36.2); MEAN CORPUSCULAR VOLUME 87.9 fL (81-97); MEAN PLATELET VOLUME 7.7 fL (7.4-10.4); MONOCYTES # (AUTO) 0.71 x10^3/uL (0.2-0.8); MONOCYTES % (AUTO) 9 % (2-9); NEUTROPHILS # (AUTO) 5.88 x10^3/uL (1.8-6.8); NEUTROPHILS % (AUTO) 74 % (42-75); PLATELET COUNT 354 x10^3/uL (130-400); RED BLOOD COUNT 4.21 x10^6/uL (4.38-5.82); RED CELL DISTRIBUTION WIDTH 13.6 % (9.4-14.8)
[2019-05-02 08:18] LABS: ALBUMIN 2.9 g/dL (3.4-5.0); ANION GAP 4 mmol/L (5-15); CALCIUM 9.4 mg/dL (8.5-10.1); CHLORIDE 108 mmol/L (98-107)
[2019-05-02 08:21] LABS: ALANINE AMINOTRANSFERASE 106 U/L (12-78); ALKALINE PHOSPHATASE 147 U/L (45-117); BILIRUBIN,TOTAL 0.6 mg/dL (0.2-1.0); CREATININE 0.79 mg/dL (0.7-1.3); TOTAL PROTEIN 7.5 g/dL (6.4-8.2)
[2019-05-02] MEDS ORDERED: FOLI-17 PO (10:30)
[2019-05-02] MEDS ORDERED: PANT40TA5 PO (10:30)
[2019-05-02] MEDS ORDERED: THIA100T67 PO (10:30)
== END 2019-05-02 11:25 | disposition home or self-care (01) | DRG 439 ==
LOC: ED 05:48 → EDIP 06:23 → 3NW 09:59 → 5SO 04-27 11:07 → DCLOUNGE 05-02 11:19
PROVIDERS: ADMIT Internal Medicine; ATTEND Internal Medicine
DX: K85.20 Alcohol induced acute pancreatitis without necrosis or infection (principal); F10.239 Alcohol dependence with withdrawal, unspecified; F11.20 Opioid dependence, uncomplicated; G89.29 Other chronic pain; K76.0 Fatty (change of) liver, not elsewhere classified; Z72.0 Tobacco use
CPT/HCPCS: 36415; 84145; 99285; J7121; 71045; 71275; 74177; 76700; 80053; 80061; 80307; 81001; 83605; 83690; 83735; 84100; 84443; 84484; 85025; 85379; 87040; 93005; 96374; G0378; J1170; J1885; J2405; J3411; J3475; J3480; Q9967; C9113; J2060; J2270; J7120

== ENCOUNTER 2019-07-10 06:32 | Emergency (ER) | payer OTHER ==
[~2019-07-10] VITALS: Ht 177.8 cm; Wt 79.1 kg
[2019-07-10 11:11] VITALS: BP 124/62
== END 2019-07-10 11:14 | disposition home or self-care (01) ==
LOC: ED 08:29
DX: K29.00 Acute gastritis without bleeding (principal)
CPT/HCPCS: 36415; 74177; 80053; 81003; 83690; 85025; 96361; 96374; 96375; 96376; 99284; J1170; J2405; J3490; J7030; Q9967

== ENCOUNTER 2019-07-10 18:58 | Emergency (ER) | payer OTHER ==
[~2019-07-10] VITALS: Ht 177.8 cm; Wt 78.1 kg
[2019-07-10 20:54] VITALS: BP 122/70
== END 2019-07-10 20:58 | disposition home or self-care (01) ==
LOC: ED 20:52
DX: K29.00 Acute gastritis without bleeding (principal); M54.9 Dorsalgia, unspecified; G89.29 Other chronic pain; Z79.899 Other long term (current) drug therapy
CPT/HCPCS: 36415; 80053; 83690; 85025; 96372; 99283; J0500

== ENCOUNTER 2019-09-25 07:33 | Emergency (ER) | payer OTHER ==
[~2019-09-25] VITALS: Ht 177.8 cm; Wt 73.0 kg
[~2019-09-25 07:33] MED LIST changes: +HYDR-3240 PO; +THIA100T67 PO
--- NOTE | 2019-09-25 07:56 | NUR ---
THIS IS A 34 YO MALE COMING IN FOR LOW BACK PAIN INCREASING YESTERDAY. PATIENT HAS A HX OF CHRONIC LOW BACK PAIN, NAD IN PROCESS OF SCHEDULING BACK SURGERY FOR TWO HERNIATED DISCS. PATIENT STATES THAT LAST NIGHT HE WAS HAVING STOMACH PAINS, DIARRHEA, AND NAUSEOUS LAST NIGHT AND THE BACK PAIN GOT WORSE. DENIES VOMITING. PATIENT TAKES OPIOID MEDICATIONS PRESCRIBED BY PRIMARY MD, HAS NOT TAKEN TODAY. PATIENT PLACED ON CONTINUOUS SPO2 AT 97%, CYCLE BP Q1HR. CALL LIGHT IN REACH.
[2019-09-25] MEDS ORDERED: DIAZEPAM 5 MG TABLET PO ONE (08:00)
[2019-09-25] MEDS ORDERED: FENTANYL PF 100 MCG/2ML IM ONE (08:00)
[2019-09-25] MEDS ORDERED: KETOROLAC 30 MG/1 ML IM ONE (08:00)
[2019-09-25] MEDS ORDERED: KETOROLAC 30 MG/1 ML ONE (08:10)
[2019-09-25] MEDS ORDERED: FENTANYL PF 100 MCG/2ML ONE (08:11)
[2019-09-25] MEDS ORDERED: DIAZEPAM 5 MG TABLET ONE (08:11)
--- NOTE | 2019-09-25 08:20 | NUR ---
PATIENT MEDICATED PER EMAR,RESTING SUPINE ON GURNEY, WARM BLANKET PROVIDED, DENIES FURTHER NEEDS AT THIS TIME.
--- NOTE | 2019-09-25 08:47 | NUR ---
PATIENT STATES PAIN HAS IMPROVED, CURRENTLY 2-02/05. PATIENT RESTING COMFORTABLY, DENIES NEEDS AT THIS TIME.
[2019-09-25 09:36] VITALS: BP 117/75
--- NOTE | 2019-09-25 09:39 | NUR ---
TALKED IWRAIN SINCLAIR ABOUT PROGRESSION OF CARE AND PT CONCERNS ABOUT DIARRHEA AND STOMACH PAINS. MD DISCUSSED FURTHER WITH PT.
--- NOTE | 2019-09-25 09:40 | NUR ---
Patient/Caregiver given discharge instructions and they have confirmed that they understand the instructions. Patient ambulatory with steady gait.
== END 2019-09-25 09:46 | disposition home or self-care (01) ==
LOC: ED 08:08
DX: S39.012A Strain of muscle, fascia and tendon of lower back, initial encounter (principal); G89.29 Other chronic pain; X58.XXXA Exposure to other specified factors, initial encounter; Y93.89 Activity, other specified; Y92.89 Other specified places as the place of occurrence of the external cause; Y99.8 Other external cause status
CPT/HCPCS: 96372; 99283; J1885; J3010

== ENCOUNTER → 2019-10-13 | Outpatient (CLI) | payer OTHER ==
[~2019-10-13] MED LIST changes: +BACL-19 PO; +HYDR-3653 PO
[2019-10-13 15:43] LABS: BASOPHILS # (AUTO) 0.02 x10^3/uL (0-0.1); BASOPHILS % (AUTO) 0 % (0-1); EOSINOPHILS # (AUTO) 0.09 x10^3/uL (0-0.4); EOSINOPHILS % (AUTO) 1 % (1-7); LYMPHOCYTES # (AUTO) 2.04 x10^3/uL (1-3.4); LYMPHOCYTES % (AUTO) 28 % (22-44); MD NO; MEAN CORPUSCULAR HEMOGLOBIN 28.7 pg (27.5-34.5); MEAN CORPUSCULAR HGB CONC 33.1 g/dL (33.2-36.2); MEAN CORPUSCULAR VOLUME 86.7 fL (81-97); MEAN PLATELET VOLUME 8.5 fL (7.4-10.4); MONOCYTES # (AUTO) 0.36 x10^3/uL (0.2-0.8); MONOCYTES % (AUTO) 5 % (2-9); NEUTROPHILS # (AUTO) 4.82 x10^3/uL (1.8-6.8); NEUTROPHILS % (AUTO) 66 % (42-75); PLATELET COUNT 254 x10^3/uL (130-400); RED BLOOD COUNT 5.18 x10^6/uL (4.38-5.82); RED CELL DISTRIBUTION WIDTH 15.2 % (9.4-14.8)
[2019-10-13 15:46] LABS: MICROSCOPIC NOT IND
[2019-10-13 15:46] LABS: ANION GAP 4 mmol/L (5-15); CALCIUM 9.2 mg/dL (8.5-10.1); CHLORIDE 108 mmol/L (98-107)
[2019-10-13 15:49] LABS: CULTURE INDICATED? NO
[2019-10-13 15:49] LABS: INTERNATIONAL NORMALIZED RATIO 0.98 (0.93-1.1); PROTHROMBIN TIME 10.3 Seconds (9.6-11.5)
== END | disposition home or self-care (01) ==
LOC: STAR 14:22
PROVIDERS: ATTEND Neurological Surgery
DX: M47.26 Other spondylosis with radiculopathy, lumbar region (principal); Z01.818 Encounter for other preprocedural examination; J45.909 Unspecified asthma, uncomplicated; Z72.0 Tobacco use
CPT/HCPCS: 36415; 71046; 80048; 81003; 85025; 85610; 85730; 93005

== ENCOUNTER 2019-10-30 07:49 | Inpatient (IN) | payer OTHER ==
[~2019-10-30] VITALS: Ht 177.8 cm; Wt 83.4 kg
[2019-10-30] MEDS ORDERED: MIDAZOLAM 1 MG/ML, 2ML ONE (07:56)
[2019-10-30] MEDS ORDERED: METOCLOPRAMIDE 5 MG/ML, 2ML ONE (07:56)
[2019-10-30] MEDS ORDERED: PROPOFOL 10 MG/ML, 20ML ONE (07:56)
[2019-10-30] MEDS ORDERED: LIDOCAINE-MPF 2% ,5ML ONE ×2 (07:56)
[2019-10-30] MEDS ORDERED: CEFAZOLIN 1,000 MG ONE ×2 (07:56)
[2019-10-30] MEDS ORDERED: DEXAMETHASONE 4 MG/ML, 1ML ONE ×2 (07:56)
[2019-10-30] MEDS ORDERED: ROCURONIUM 10MG/ML,5ML ONE (07:56)
[2019-10-30] MEDS ORDERED: BUPIVACAINE/PF 0.25% ONE (08:31)
[2019-10-30 08:37] VITALS: BP 137/90
[2019-10-30] MEDS ORDERED: LACTATED RINGERS 1,000 ML IV SCH (08:40)
[2019-10-30] MEDS ORDERED: ACETAMINOPHEN 500 MG TABLET PO ONE (09:00)
[2019-10-30] MEDS ORDERED: GABAPENTIN 300 MG CAPSULE PO ONE (09:00)
[2019-10-30] MEDS ORDERED: ONDANSETRON ODT 8 MG PO ONE (09:00)
[2019-10-30] MEDS ORDERED: SCOPOLAMINE PATCH, 1.5MG PATCH.TD72 TD ONE (09:00)
[2019-10-30] MEDS ORDERED: LORazepam 2 MG/ML, 1ML IVPush PRN (09:30)
[2019-10-30] MEDS ORDERED: LABETALOL 5MG/ML, 20ML IV PRN (09:30)
[2019-10-30] MEDS ORDERED: DIPHENHYDRAMINE 50 MG/ML, 1ML IVPush PRN ×2 (09:30→15:00)
[2019-10-30] MEDS ORDERED: ONDANSETRON 2MG/ML, 2ML IV PRN ×2 (09:30→15:00)
[2019-10-30] MEDS ORDERED: MEPERIDINE/PF 25MG/ML,1ML IVPush PRN (09:30)
[2019-10-30] MEDS ORDERED: HYDROmorphone 2 MG/ML, 1ML IVPush PRN (09:30)
[2019-10-30] MEDS ORDERED: OXYcodone 5 MG/5 ML ORAL.SOL UDC PO PRN (09:30)
[2019-10-30] MEDS ORDERED: hydrALAzine 20 MG/ML, 1ML IV PRN (09:30)
[2019-10-30] MEDS ORDERED: MAGNESIUM SULFATE 1 GM/2 ML ONE (09:56)
[2019-10-30] MEDS ORDERED: NEOSTIGMINE 1 MG/ML, 10ML ONE (10:19)
[2019-10-30] MEDS ORDERED: KETAMINE 10 MG/ML, 20ML ONE (10:19)
[2019-10-30] MEDS ORDERED: GLYCOPYRROLATE 0.2MG/1ML, 5ML ONE (10:19)
[2019-10-30] MEDS ORDERED: FENTANYL PF 250 MCG/5ML ONE (10:44)
[2019-10-30] MEDS ORDERED: BACITRACIN 50,000 UNIT IRRIG ONE (11:11)
[2019-10-30] MEDS ORDERED: THROMBIN (RECOMBINANT) 5,000 UNIT VIAL TP ONE (11:12)
[2019-10-30] MEDS ORDERED: BACITRACIN 50,000 UNIT ONE (12:31)
[2019-10-30] MEDS ORDERED: EPINEPHRINE 1 MG/ML, 1ML ONE (12:31)
[2019-10-30] MEDS ORDERED: VANCOMYCIN 1,000 MG ONE (12:32)
[2019-10-30] MEDS ORDERED: FENTANYL PF 100 MCG/2ML ONE ×2 (12:44→13:06)
[2019-10-30] MEDS ORDERED: OXYcodone 5 MG/5 ML ORAL.SOL UDC ONE (12:44)
[2019-10-30] MEDS: FENTANYL PF 100 MCG/2ML IV PRN ×4 (12:56→13:15)
[2019-10-30] MEDS ORDERED: METHOCARBAMOL 1,000 MG in DEXTROSE 5% 100 ML IV ONE (13:00)
[2019-10-30] MEDS ORDERED: HYDROmorphone 1 MG/ML, 1ML VIAL ONE (13:35)
[2019-10-30] MEDS ORDERED: DIPHENHYDRAMINE 25 MG CAPSULE PO PRN (14:30)
[2019-10-30] MEDS ORDERED: HYDROmorphone 2 MG/ML, 1ML IM PRN (14:30)
[2019-10-30] MEDS: D5%-0.9% NACL+KCL 20MEQ 1,000 ML IV SCH (14:56)
[2019-10-30] MEDS ORDERED: BISACODYL 10 MG SUPP PR PRN (15:00)
[2019-10-30] MEDS ORDERED: OXYcodone/APAP 5/325MG TABLET PO PRN (15:00)
[2019-10-30] MEDS ORDERED: MAGNESIUM HYDROXIDE 8%, 30ML UDC PO PRN (15:00)
[2019-10-30] MEDS ORDERED: PROMETHAZINE 25 MG/ML, 1ML IM PRN (15:00)
[2019-10-30] MEDS ORDERED: DIPHENHYDRAMINE 50 MG/ML, 1ML IM PRN (15:00)
[2019-10-30] MEDS: HYDROmorphone 2MG TABLET PO PRN ×2 (15:35→20:54)
[2019-10-30] MEDS: CEFAZOLIN PMX 1GM/50ML 50 ML IVPB SCH (18:00)
[2019-10-30 20:16] VITALS: BP 117/75
[2019-10-30] MEDS: METHOCARBAMOL 750 MG TABLET PO PRN (22:12)
[2019-10-30 23:57] VITALS: BP 100/55
[2019-10-31] MEDS: D5%-0.9% NACL+KCL 20MEQ 1,000 ML IV SCH (01:00)
[2019-10-31] MEDS: CEFAZOLIN PMX 1GM/50ML 50 ML IVPB SCH (02:11)
[2019-10-31] MEDS: HYDROmorphone 2MG TABLET PO PRN ×3 (02:12→10:11)
[2019-10-31 04:14] VITALS: BP 104/59
[2019-10-31] MEDS: METHOCARBAMOL 750 MG TABLET PO PRN (06:16)
[2019-10-31 07:19] VITALS: BP 107/64
[2019-10-31] MEDS ORDERED: OXYC-302 PO (08:54)
[2019-10-31] MEDS ORDERED: METH750T87 PO (08:55)
[2019-10-31] MEDS ORDERED: SENNA/DOCUSATE TABLET PO SCH (09:00)
== END 2019-10-31 11:36 | disposition home or self-care (01) | DRG 520 ==
LOC: OUT 07:49 → 4NE 14:05 → OUT 14:11 → DCLOUNGE 10-31 11:25
PROVIDERS: ADMIT Neurological Surgery; ATTEND Neurological Surgery
PROC: 0SB20ZZ Excision of Lumbar Vertebral Disc, Open Approach (ICD-10-PCS; 2019-10-30)
PROC: 01NR0ZZ Release Sacral Nerve, Open Approach (ICD-10-PCS; 2019-10-30)
PROC: 00NY0ZZ Release Lumbar Spinal Cord, Open Approach (ICD-10-PCS; 2019-10-30)
PROC: 01NB0ZZ Release Lumbar Nerve, Open Approach (ICD-10-PCS; 2019-10-30)
PROC: 0SB40ZZ Excision of Lumbosacral Disc, Open Approach (ICD-10-PCS; principal; 2019-10-30 10:00)
DX: M48.061 Spinal stenosis, lumbar region without neurogenic claudication (principal); J45.909 Unspecified asthma, uncomplicated; F10.10 Alcohol abuse, uncomplicated; Y90.9 Presence of alcohol in blood, level not specified; M51.16 Intervertebral disc disorders with radiculopathy, lumbar region; M51.17 Intervertebral disc disorders with radiculopathy, lumbosacral region; M47.26 Other spondylosis with radiculopathy, lumbar region
CPT/HCPCS: 72100; J3490; C1729; G0378; J0171; J0690; J1100; J1170; J2250; J2704; J2710; J3010; J3370; J3475; Q0162; J2765; J2800; J7120

== ENCOUNTER 2020-02-13 11:58 | Emergency (ER) | payer OTHER ==
[~2020-02-13] VITALS: Ht 177.8 cm; Wt 80.2 kg
[~2020-02-13 11:58] MED LIST changes: +METH750T87 PO; +OXYC-302 PO
[2020-02-13 12:12] VITALS: BP 150/91
--- NOTE | 2020-02-13 12:14 | NUR ---
PT DECLINED WHEELCHAIR.
[2020-02-13] MEDS ORDERED: METHOCARBAMOL 750 MG TABLET ONE (12:27)
[2020-02-13] MEDS ORDERED: KETOROLAC 30 MG/1 ML ONE (12:27)
[2020-02-13] MEDS ORDERED: METHOCARBAMOL 750 MG TABLET PO ONE (12:30)
[2020-02-13] MEDS ORDERED: KETOROLAC 30 MG/1 ML IM ONE (12:30)
== END 2020-02-13 12:58 | disposition home or self-care (01) ==
LOC: ED 12:35
DX: S39.012A Strain of muscle, fascia and tendon of lower back, initial encounter (principal); X58.XXXA Exposure to other specified factors, initial encounter; Y93.01 Activity, walking, marching and hiking; Y92.89 Other specified places as the place of occurrence of the external cause; Y99.8 Other external cause status
CPT/HCPCS: 96372; 99283; J1885

== ENCOUNTER 2020-06-19 07:17 | Inpatient (IN) | payer OTHER ==
[~2020-06-19] VITALS: Ht 177.8 cm; Wt 84.5 kg
[2020-06-19] MEDS ORDERED: BUPR1FIL5 SL (07:42)
--- NOTE | 2020-06-19 07:44 | NUR ---
PATIENT BROUGHT BACK FROM TRIAGE, PLACED ON SHERIFFS OFFICER AND PULSE OX. PIV STARTED AND BLOOD DRAWN. AWATING ORDERS FROM PROVIDER.
[2020-06-19] MEDS ORDERED: ONDANSETRON 2MG/ML, 2ML ONE (07:47)
[2020-06-19] MEDS ORDERED: HYDROmorphone 1 MG/ML, 1ML INJ ONE ×2 (07:47→08:14)
[2020-06-19] MEDS: HYDROmorphone 2 MG/ML, 1ML IVPush PRN ×2 (07:53→08:16)
--- NOTE | 2020-06-19 07:57 | NUR ---
4 MG IV ZOFRAN AND 1 MG IV DILAUDID ADMINISTERED, NO FURTHER NEEDS AT THIS TIME.
[2020-06-19] MEDS ORDERED: SODIUM CHLORIDE FLUSH 10ML SYR IVF ONE (08:00)
[2020-06-19] MEDS ORDERED: ONDANSETRON 2MG/ML, 2ML IVPush ONE (08:00)
[2020-06-19 08:06] LABS: BASOPHILS # (AUTO) 0.03 x10^3/uL (0-0.1); BASOPHILS % (AUTO) 0 % (0-1); EOSINOPHILS % (AUTO) 5 % (1-7); LYMPHOCYTES # (AUTO) 1.37 x10^3/uL (1-3.4); LYMPHOCYTES % (AUTO) 17 % (22-44); MD NO; MEAN CORPUSCULAR HEMOGLOBIN 28.1 pg (27.5-34.5); MEAN CORPUSCULAR HGB CONC 32.5 g/dL (33.2-36.2); MEAN CORPUSCULAR VOLUME 86.4 fL (81-97); MEAN PLATELET VOLUME 8.6 fL (7.4-10.4); MONOCYTES # (AUTO) 0.44 x10^3/uL (0.2-0.8); MONOCYTES % (AUTO) 6 % (2-9); NEUTROPHILS # (AUTO) 5.62 x10^3/uL (1.8-6.8); NEUTROPHILS % (AUTO) 71 % (42-75); PLATELET COUNT 226 x10^3/uL (130-400); RED CELL DISTRIBUTION WIDTH 13.2 % (9.4-14.8)
[2020-06-19 08:18] LABS: ALANINE AMINOTRANSFERASE 63 U/L (12-78); ALBUMIN 4.1 g/dL (3.4-5.0); ANION GAP 7 mmol/L (5-15); CALCIUM 9.1 mg/dL (8.5-10.1); CHLORIDE 103 mmol/L (98-107); CREATININE 0.98 mg/dL (0.7-1.3)
[2020-06-19 08:20] LABS: ALKALINE PHOSPHATASE 97 U/L (45-117); BILIRUBIN,TOTAL 0.9 mg/dL (0.2-1.0); TOTAL PROTEIN 8.1 g/dL (6.4-8.2)
--- NOTE | 2020-06-19 08:20 | NUR ---
PATIENT STILL EXPERIENCING 10/10 ABD/MID-CHEST PAIN. SECOND DOSE OF 1 MG IV DILAUDID ADMINISTERED. NO FURTHER NEEDS AT THIS TIME.
--- NOTE | 2020-06-19 08:43 | NUR ---
PATIENT STILL C/O 09/07 MID-CHEST PAIN, ABDOMINAL PAIN SOMEWHAT RELIEVED BY SECOND DOSE OF DILAUDID. PROVIDER NOTIFIED.
[2020-06-19] MEDS ORDERED: PROCHLORPERAZINE 5 MG/ML, 2ML IVPush ONE (09:00)
[2020-06-19] MEDS ORDERED: KETOROLAC 30 MG/1 ML IVPush ONE (09:00)
[2020-06-19] MEDS ORDERED: PANTOPRAZOLE 40 MG IV IVPush SCH (09:00)
[2020-06-19] MEDS ORDERED: PROCHLORPERAZINE 5 MG/ML, 2ML ONE (09:05)
[2020-06-19] MEDS ORDERED: KETOROLAC 30 MG/1 ML ONE (09:05)
[2020-06-19] MEDS ORDERED: PANTOPRAZOLE 40 MG IV ONE (09:05)
--- NOTE | 2020-06-19 09:13 | NUR ---
PT MEDICATED WITH TORADOL, PROTONIX AND COMPAZINE. VS UPDATED. PT RESTING. CALL BUTTON WITHIN REACH.
[2020-06-19 09:14] VITALS: BP 123/86
--- NOTE | 2020-06-19 09:50 | NUR ---
PATIENT STATES PAIN LEVEL IS NOW DOWN TO A 6/10 IN HIS ABDOMEN AND MID-CHEST AREA. NO FURTHER NEEDS AT THIS TIME.
[2020-06-19] MEDS ORDERED: SODIUM CHLORIDE 0.9% 1,000ML IVBOLUS ONE (10:00)
--- NOTE | 2020-06-19 10:34 | NUR ---
REPORT GIVEN TO DEBBIE CHILDS.
[2020-06-19] MEDS ORDERED: SODIUM CHLORIDE 0.9% 1,000 ML IV SCH (11:53)
[2020-06-19] MEDS ORDERED: KETOROLAC 30 MG/1 ML IV PRN (12:00)
[2020-06-19] MEDS ORDERED: ONDANSETRON 2MG/ML, 2ML IVPush PRN (12:00)
[2020-06-19] MEDS ORDERED: ENOXAPARIN 40 MG/0.4 ML SQ SCH (12:00)
[2020-06-19] MEDS ORDERED: hydrALAzine 20 MG/ML, 1ML IVPush PRN (12:00)
[2020-06-19] MEDS ORDERED: ACETAMINOPHEN 325 MG TABLET PO PRN (12:00)
[2020-06-19] MEDS ORDERED: morphine SULFATE 10 MG/ML, 1ML IVPush PRN ×2 (12:00→15:00)
[2020-06-19] MEDS ORDERED: OXYcodone IR 5MG TABLET PO PRN (12:30)
[2020-06-20] MEDS ORDERED: BUPRENORPHINE/NALOXONE 2-0.5MG SL SCH (09:00)
[2020-06-20] MEDS ORDERED: SODIUM CHLORIDE 0.9% 1,000 ML IV SCH (11:53)
== END 2020-06-19 14:41 | disposition left against medical advice (07) | DRG 439 ==
LOC: ED 08:02 → EDIP 09:42 → 3N 11:31
PROVIDERS: ADMIT Hospitalist; ATTEND Hospitalist
DX: K85.20 Alcohol induced acute pancreatitis without necrosis or infection (principal); F10.288 Alcohol dependence with other alcohol-induced disorder; Y90.9 Presence of alcohol in blood, level not specified; Z83.3 Family history of diabetes mellitus
CPT/HCPCS: 36415; 71045; 76700; 80053; 80307; 83690; 85025; G0378; J1170; J1650; J1885; J2405; C9113; J0780; J2270; J7030

== ENCOUNTER 2020-06-20 05:55 | Inpatient (IN) | payer OTHER ==
[~2020-06-20] VITALS: Ht 177.8 cm; Wt 84.4 kg
[~2020-06-20 05:55] MED LIST changes: +BUPR1FIL5 SL; -PANT40TA5 PO; +PANT40TA6 PO
[2020-06-20] MEDS ORDERED: ONDANSETRON 2MG/ML, 2ML IVPush ONE (06:30)
[2020-06-20] MEDS ORDERED: SODIUM CHLORIDE 0.9% 1,000ML IVBOLUS ONE (06:30)
[2020-06-20] MEDS ORDERED: SODIUM CHLORIDE FLUSH 10ML SYR IVF ONE (06:30)
[2020-06-20 07:00] LABS: BASOPHILS # (AUTO) 0.01 x10^3/uL (0-0.1); BASOPHILS % (AUTO) 0 % (0-1); EOSINOPHILS # (AUTO) 0.07 x10^3/uL (0-0.4); EOSINOPHILS % (AUTO) 1 % (1-7); LYMPHOCYTES # (AUTO) 0.65 x10^3/uL (1-3.4); LYMPHOCYTES % (AUTO) 5 % (22-44); MD NO; MEAN CORPUSCULAR HEMOGLOBIN 28.3 pg (27.5-34.5); MEAN CORPUSCULAR HGB CONC 33.4 g/dL (33.2-36.2); MEAN PLATELET VOLUME 8.8 fL (7.4-10.4); MONOCYTES # (AUTO) 0.55 x10^3/uL (0.2-0.8); MONOCYTES % (AUTO) 5 % (2-9); NEUTROPHILS # (AUTO) 10.79 x10^3/uL (1.8-6.8); NEUTROPHILS % (AUTO) 89 % (42-75); PLATELET COUNT 203 x10^3/uL (130-400); RED BLOOD COUNT 6.02 x10^6/uL (4.38-5.82); RED CELL DISTRIBUTION WIDTH 13.2 % (9.4-14.8)
[2020-06-20 07:24] LABS: ALANINE AMINOTRANSFERASE 42 U/L (12-78); ALBUMIN 3.5 g/dL (3.4-5.0); ANION GAP 11 mmol/L (5-15); CALCIUM 9.3 mg/dL (8.5-10.1); CHLORIDE 105 mmol/L (98-107); CREATININE 0.99 mg/dL (0.7-1.3)
[2020-06-20 07:27] LABS: ALKALINE PHOSPHATASE 93 U/L (45-117); BILIRUBIN,TOTAL 1.1 mg/dL (0.2-1.0); TOTAL PROTEIN 6.9 g/dL (6.4-8.2)
[2020-06-20] MEDS ORDERED: HYDROmorphone 1 MG/ML, 1ML INJ ONE ×2 (07:31→08:34)
[2020-06-20] MEDS ORDERED: ONDANSETRON 2MG/ML, 2ML ONE (07:31)
[2020-06-20] MEDS: HYDROmorphone 1 MG/ML, 1ML INJ IVPush PRN ×2 (07:32→08:36)
--- NOTE | 2020-06-20 08:02 | NUR ---
PT UPRIGHT ON GURNEY RESTLESS & MOANING WITH C/O ABD PAIN, LITTLE RELIEF AFTER 1ST DOSE OF PAIN MED, RESPONDS APPROP TO STAFF, COMFORT MEASURES PROVIDED, CALL LIGHT WITHIN REACH.
[2020-06-20] MEDS ORDERED: SODIUM CHLORIDE 0.9% 1,000 ML IV ONE (08:30)
--- NOTE | 2020-06-20 08:33 | NUR ---
Pt to be admitted to medical, room 361. Report called to Yani.
[2020-06-20 08:50] VITALS: BP 149/97
[2020-06-20 08:57] VITALS: BP 149/97
[2020-06-20] MEDS ORDERED: hydrALAzine 20 MG/ML, 1ML IVPush PRN (10:00)
[2020-06-20] MEDS ORDERED: ACETAMINOPHEN 325 MG TABLET PO PRN (10:00)
[2020-06-20] MEDS ORDERED: OXYcodone IR 5MG TABLET PO PRN (10:00)
[2020-06-20] MEDS ORDERED: ONDANSETRON 2MG/ML, 2ML IVPush PRN (10:00)
[2020-06-20] MEDS: ENOXAPARIN 40 MG/0.4 ML SQ SCH (10:16)
[2020-06-20] MEDS: HYDROmorphone 2 MG/ML, 1ML IVPush PRN ×4 (10:16→22:17)
[2020-06-20] MEDS: SODIUM CHLORIDE 0.9% 1,000 ML IV SCH ×2 (10:21→17:07)
[2020-06-20] MEDS: FAMOTIDINE 20 MG/2 ML IVPush SCH (10:37)
[2020-06-20] MEDS: morphine SULFATE 10 MG/ML, 1ML IVPush PRN ×2 (12:59→19:43)
[2020-06-20 15:52] VITALS: BP 153/85
[2020-06-20 18:59] VITALS: BP 125/80
[2020-06-21 01:17] VITALS: BP 118/73
[2020-06-21] MEDS: morphine SULFATE 10 MG/ML, 1ML IVPush PRN ×5 (01:17→23:05)
[2020-06-21] MEDS: SODIUM CHLORIDE 0.9% 1,000 ML IV SCH ×4 (01:17→21:26)
[2020-06-21 05:24] LABS: BASOPHILS # (AUTO) 0.03 x10^3/uL (0-0.1); BASOPHILS % (AUTO) 0 % (0-1); EOSINOPHILS # (AUTO) 0.63 x10^3/uL (0-0.4); EOSINOPHILS % (AUTO) 7 % (1-7); LYMPHOCYTES # (AUTO) 1.07 x10^3/uL (1-3.4); LYMPHOCYTES % (AUTO) 11 % (22-44); MD NO; MEAN CORPUSCULAR HEMOGLOBIN 28.5 pg (27.5-34.5); MEAN CORPUSCULAR HGB CONC 33.1 g/dL (33.2-36.2); MEAN PLATELET VOLUME 8.8 fL (7.4-10.4); MONOCYTES # (AUTO) 0.55 x10^3/uL (0.2-0.8); MONOCYTES % (AUTO) 6 % (2-9); NEUTROPHILS # (AUTO) 7.22 x10^3/uL (1.8-6.8); NEUTROPHILS % (AUTO) 76 % (42-75); PLATELET COUNT 167 x10^3/uL (130-400); RED BLOOD COUNT 4.87 x10^6/uL (4.38-5.82); RED CELL DISTRIBUTION WIDTH 13.5 % (9.4-14.8)
[2020-06-21 05:28] LABS: ANION GAP 7 mmol/L (5-15); CALCIUM 8.7 mg/dL (8.5-10.1); CHLORIDE 106 mmol/L (98-107); CREATININE 0.78 mg/dL (0.7-1.3)
[2020-06-21] MEDS: HYDROmorphone 2 MG/ML, 1ML IVPush PRN ×4 (06:08→21:20)
[2020-06-21 06:37] VITALS: BP 124/84
[2020-06-21] MEDS: FAMOTIDINE 20 MG/2 ML IVPush SCH (07:53)
[2020-06-21] MEDS ORDERED: LORazepam 2 MG/ML, 1ML IV PRN ×5 (10:30)
[2020-06-21] MEDS: ENOXAPARIN 40 MG/0.4 ML SQ SCH (12:12)
[2020-06-21 12:25] VITALS: BP 133/86
[2020-06-21 21:15] VITALS: BP 118/76
[2020-06-22 00:34] VITALS: BP 124/74
[2020-06-22] MEDS: HYDROmorphone 2 MG/ML, 1ML IVPush PRN ×2 (00:35→05:14)
[2020-06-22] MEDS: morphine SULFATE 10 MG/ML, 1ML IVPush PRN ×2 (03:09→07:48)
[2020-06-22] MEDS: SODIUM CHLORIDE 0.9% 1,000 ML IV SCH ×2 (05:14→10:25)
[2020-06-22 07:31] VITALS: BP 125/72
[2020-06-22] MEDS: FAMOTIDINE 20 MG/2 ML IVPush SCH (07:47)
[2020-06-22] MEDS: ENOXAPARIN 40 MG/0.4 ML SQ SCH (10:00)
[2020-06-22] MEDS ORDERED: OXYC5TAB3 PO (10:35)
== END 2020-06-22 13:03 | disposition home or self-care (01) | DRG 440 ==
LOC: ED 06:15 → EDIP 08:05 → 3N 08:44
PROVIDERS: ADMIT Internal Medicine; ATTEND Hospitalist
DX: K85.20 Alcohol induced acute pancreatitis without necrosis or infection (principal); D72.829 Elevated white blood cell count, unspecified; K76.0 Fatty (change of) liver, not elsewhere classified; F10.20 Alcohol dependence, uncomplicated; F11.10 Opioid abuse, uncomplicated; M54.9 Dorsalgia, unspecified; G89.29 Other chronic pain; Y90.9 Presence of alcohol in blood, level not specified
CPT/HCPCS: 36415; J3490; 80048; 80053; 83690; 83735; 84100; 85025; 93005; 96361; 96374; 99285; G0378; J1170; J1650; J2405; J2270; J7030

== ENCOUNTER 2020-10-28 08:35 | Emergency (ER) | payer OTHER ==
[~2020-10-28] VITALS: Ht 180.3 cm; Wt 83.3 kg
[~2020-10-28 08:35] MED LIST changes: +OXYC5TAB3 PO
[2020-10-28 09:20] VITALS: BP 116/83
[2020-10-28 10:57] LABS: ANION GAP 7 mmol/L (5-15); CALCIUM 9.4 mg/dL (8.5-10.1); CHLORIDE 105 mmol/L (98-107)
[2020-10-28 11:00] LABS: ALANINE AMINOTRANSFERASE 114 U/L (12-78); ALKALINE PHOSPHATASE 126 U/L (45-117); BASOPHILS % (AUTO) 0 % (0-1); BILIRUBIN,TOTAL 0.8 mg/dL (0.2-1.0); CREATININE 1.02 mg/dL (0.7-1.3); EOSINOPHILS % (AUTO) 7 % (1-7); LYMPHOCYTES % (AUTO) 17 % (22-44); MD NO; MEAN CORPUSCULAR HEMOGLOBIN 28.4 pg (27.5-34.5); MEAN CORPUSCULAR HGB CONC 33.6 g/dL (33.2-36.2); MEAN PLATELET VOLUME 8.6 fL (7.4-10.4); MONOCYTES % (AUTO) 6 % (2-9); NEUTROPHILS % (AUTO) 70 % (42-75); PLATELET COUNT 215 x10^3/uL (130-400); RED BLOOD COUNT 5.27 x10^6/uL (4.38-5.82); RED CELL DISTRIBUTION WIDTH 13.5 % (9.4-14.8)
--- NOTE | 2020-10-28 11:12 | NUR ---
NO ANSWER IN LOOBY
--- NOTE | 2020-10-28 11:18 | NUR ---
NO ANSWER IN LOBBY
--- NOTE | 2020-10-28 11:53 | NUR ---
NO ANSWER IN LOBBY
== END 2020-10-28 11:54 | disposition left against medical advice (07) ==
LOC: ED 11:48
DX: R10.9 Unspecified abdominal pain (principal)
CPT/HCPCS: 36415; 80053; 83690; 85025; 99283

== ENCOUNTER 2020-12-29 20:10 | Inpatient (IN) | payer OTHER ==
[~2020-12-29] VITALS: Ht 180.3 cm; Wt 83.0 kg
[~2020-12-29 20:10] MED LIST changes: -FOLI-17 PO; +FOLI1TAB32 PO; +HYDR-1067 PO; -HYDR-3240 PO; -OXYC-302 PO; +OXYC1TAB14 PO; -OXYC5TAB3 PO; +OXYC5TAB98 PO
--- NOTE | 2020-12-29 20:32 | NUR ---
PT COMES C/O 09/07 UPPER LEFT QUADRANT ADB PAIN. PT STATES HE HAS A HX OF PANCREATITIS FOLLOWING ETOH USE. PER PT. LAST DRINK 12/28/19 "ABOUT 2 TALL CANS AND 2 SHOTS". PT STATES HE VOMITED THIS MORNING AND THE PAIN STARTED AFTER THE VOMITING. MONITORS CONNECTED. WARM BLANKETS PROVIDED. CALL LIGHT W/IN REACH
--- NOTE | 2020-12-29 20:50 | NUR ---
PROVIDER AT BEDSIDE FOR ASSESSMENT. PLAN OF CARE DISCUSSED. QUESTIONS ANSWERED
[2020-12-29] MEDS ORDERED: HYDROmorphone 1 MG/ML, 1ML INJ ONE ×2 (20:54→22:23)
[2020-12-29] MEDS ORDERED: ONDANSETRON 2MG/ML, 2ML ONE (20:55)
[2020-12-29] MEDS: HYDROmorphone 2 MG/ML, 1ML IVPush PRN ×2 (20:57→22:25)
[2020-12-29] MEDS ORDERED: SODIUM CHLORIDE FLUSH 10ML SYR IVF ONE (21:00)
[2020-12-29] MEDS ORDERED: SODIUM CHLORIDE 0.9% 1,000ML IVBOLUS ONE (21:00)
[2020-12-29] MEDS ORDERED: FAMOTIDINE 20 MG/2 ML IV ONE (21:00)
[2020-12-29] MEDS ORDERED: ONDANSETRON 2MG/ML, 2ML IVPush ONE (21:00)
[2020-12-29] MEDS ORDERED: FAMOTIDINE 20 MG/2 ML ONE (21:02)
--- NOTE | 2020-12-29 21:11 | NUR ---
PT RESTING ON GURNEY. IV PLACED. ORDERED MEDICATIONS ADMINISTERED AND INFUSING. LABS COLLECTED. PT AWARE OF NEED FOR UA AND EDUCATED TO CALL WHEN ABLE TO URINATE. VSS. CALL LIGHT W/IN REACH
[2020-12-29 21:25] LABS: BASOPHILS % (AUTO) 0 % (0-1); EOSINOPHILS % (AUTO) 5 % (1-7); LYMPHOCYTES % (AUTO) 12 % (22-44); MEAN CORPUSCULAR HEMOGLOBIN 28.6 pg (27.5-34.5); MEAN CORPUSCULAR HGB CONC 34.2 g/dL (33.2-36.2); MEAN PLATELET VOLUME 8.8 fL (7.4-10.4); MONOCYTES % (AUTO) 6 % (2-9); NEUTROPHILS % (AUTO) 77 % (42-75); PLATELET COUNT 226 x10^3/uL (130-400); RED BLOOD COUNT 5.87 x10^6/uL (4.38-5.82); RED CELL DISTRIBUTION WIDTH 13.7 % (9.4-14.8)
[2020-12-29 21:31] LABS: MD NO
[2020-12-29 21:32] LABS: ALBUMIN 4.4 g/dL (3.4-5.0); ANION GAP 5 mmol/L (5-15); CALCIUM 9.3 mg/dL (8.5-10.1); CHLORIDE 102 mmol/L (98-107)
[2020-12-29 21:36] LABS: ALANINE AMINOTRANSFERASE 141 U/L (12-78); ALKALINE PHOSPHATASE 99 U/L (45-117); BILIRUBIN,TOTAL 0.8 mg/dL (0.2-1.0); TOTAL PROTEIN 8.2 g/dL (6.4-8.2)
--- NOTE | 2020-12-29 21:49 | NUR ---
PT RESTING ON GURNEY. PT STATES PAIN IMPROVING NOW 05/08. PT ENCOURAGED TO URINATE. VSS. CALL LIGHT W/IN REACH.
--- NOTE | 2020-12-29 21:56 | NUR ---
REPORT GIVEN TO SVETLANA
[2020-12-29 22:09] LABS: MICROSCOPIC INDICATED
[2020-12-29] MEDS ORDERED: BUPR1FIL3 SL (22:26)
--- NOTE | 2020-12-29 22:28 | NUR ---
PT RESTING ON GURNEY. CONTINUED PAIN. PT MEDICATED FOR PAIN A SECOND TIME PER EMAR.
[2020-12-29 23:29] VITALS: BP 127/80
[2020-12-29] MEDS ORDERED: ONDANSETRON 2MG/ML, 2ML IVPush PRN (23:30)
[2020-12-29] MEDS ORDERED: LABETALOL 5MG/ML, 20ML IVPush PRN (23:30)
[2020-12-29] MEDS ORDERED: DOCUSATE 100 MG CAPSULE PO PRN (23:30)
[2020-12-29 23:38] VITALS: BP 127/80
[2020-12-30] MEDS: SODIUM CHLORIDE 0.9% 1,000 ML IV SCH ×2 (00:14→05:44)
[2020-12-30] MEDS: HEPARIN 5,000 UNITS/ML, 1ML SQ SCH ×3 (00:14→15:48)
[2020-12-30] MEDS: morphine SULFATE 10 MG/ML, 1ML IVPush PRN ×7 (01:30→21:39)
[2020-12-30 05:57] LABS: BASOPHILS % (AUTO) 0 % (0-1); EOSINOPHILS % (AUTO) 16 % (1-7); LYMPHOCYTES % (AUTO) 18 % (22-44); MEAN CORPUSCULAR HEMOGLOBIN 28.8 pg (27.5-34.5); MEAN PLATELET VOLUME 8.4 fL (7.4-10.4); MONOCYTES % (AUTO) 5 % (2-9); NEUTROPHILS % (AUTO) 61 % (42-75); PLATELET COUNT 142 x10^3/uL (130-400); RED BLOOD COUNT 4.84 x10^6/uL (4.38-5.82); RED CELL DISTRIBUTION WIDTH 13.9 % (9.4-14.8)
[2020-12-30 06:05] LABS: ALBUMIN 3.4 g/dL (3.4-5.0); ANION GAP 8 mmol/L (5-15); CALCIUM 8.1 mg/dL (8.5-10.1); CHLORIDE 109 mmol/L (98-107)
[2020-12-30 06:10] LABS: ALANINE AMINOTRANSFERASE 94 U/L (12-78); ALKALINE PHOSPHATASE 80 U/L (45-117); BILIRUBIN,TOTAL 1.1 mg/dL (0.2-1.0); CREATININE 0.85 mg/dL (0.7-1.3); TOTAL PROTEIN 6.2 g/dL (6.4-8.2)
[2020-12-30 06:41] VITALS: BP 121/71
[2020-12-30 07:15] LABS: MD SCAN
[2020-12-30 13:10] VITALS: BP 132/85
[2020-12-30 19:49] VITALS: BP 132/83
[2020-12-31] MEDS: HEPARIN 5,000 UNITS/ML, 1ML SQ SCH ×3 (00:07→15:30)
[2020-12-31 02:32] VITALS: BP 127/76
[2020-12-31 06:53] VITALS: BP 136/82
[2020-12-31] MEDS: LACTATED RINGERS 1,000 ML IV SCH ×3 (08:00→16:00)
[2020-12-31] MEDS ORDERED: ACETAMINOPHEN 325 MG TABLET PO PRN (11:00)
[2020-12-31 13:04] VITALS: BP 132/79
== END 2020-12-31 18:05 | disposition home or self-care (01) | DRG 440 ==
LOC: ED 20:34 → EDIP 22:57 → 3N 23:27
PROVIDERS: ADMIT Family Medicine; ATTEND Hospitalist
DX: K85.20 Alcohol induced acute pancreatitis without necrosis or infection (principal); F10.20 Alcohol dependence, uncomplicated
CPT/HCPCS: 36415; 80053; 81001; 83690; 85025; 96361; 96374; 96375; 96376; 99285; G0378; J1170; J1644; J2405; J2270; J7030; J7120